=== PATIENT | male | born 1970 | race Two or more races ===

== ENCOUNTER 2022-04-24 18:52 | Emergency (ER) | payer OTHER, SELFPAY ==
[2022-04-24 19:03] VITALS: BP 178/92; PULSE 90; RESP 14; TEMP 37.3; O2SAT 97
--- NOTE | 2022-04-24 20:05 | ED_ITS ---
HPI - Abdominal Pain General: Chief Complaint: Abdominal Pain Stated Complaint: ABD Pain Time Seen by Provider: 04/24/22 20:05 History of Present Illness: 52-year-old male patient comes in today with complaints of mid abdominal pain for about 1 week. Patient reports that the pain seemed to to improve but then started back today. Patient has used some Pepto-Bismol and noted some discoloration of his stool. Patient denies any chronic medical problems but does use tramadol routinely for chronic pain. Patient did recently have his fingernail removed on his left hand due to infec tion. Patient denies use of any other medications. Associated Symptoms: Reports diarrhea and nausea; Denies vomiting Review of Systems General: Reports: 10 or more systems reviewed and unremarkable except in HPI and below Card: Denies: chest pain Resp: Denies: dyspnea GI: Reports: abdominal pain, nausea and diarrhea; Denies: vomiting : Denies: difficulty urinating Skin/Breast: Denies: rash Physical Exam Const: COMMON NORMALS: alert HENMT: COMMON NORMALS: normocephalic HEAD & SCALP: normocephalic Neck/C-Spine: COMMON NORMALS: full ROM Resp: COMMON NORMALS: normal respiratory effort Cardio: COMMON NORMALS: regular rate RATE: regular rate GI: AUSCULTATION: Yes normoactive bowel sounds PALPATION: Yes Firmness to palpation present (GI) and Yes Tenderness to palpation present (GI) (Mild generalized) Extremity: COMMON NORMALS: normal to inspection Neuro: SENSORIUM/ORIENTATION: Yes alert Skin: COMMON NORMALS: no rashes or lesions noted GENERAL SKIN EXAM: no rashes or lesions noted Course Vital Signs: Vital signs: Vital Signs Temperature 98.9 F 04/24/22 20:37 Pulse Rate 86 04/24/22 20:37 Respiratory Rate 16 04/24/22 20:37 Blood Pressure 169/79 04/24/22 20:37 Pulse Oximetry 98 04/24/22 20:37 MDM - Abdominal Pain Medical Decision Making 52-year-old male patient comes in today with complaints of abdominal discomfort and loose stools. Patient reports loose stools for about 1 week now. Patient reports he thought he was getting better but today it started again. Further discussion patient had just come off a round of antibiotics for about 1 month due to an infection to his left middle finger now. On exam abdomen is slightly firm with some generalized tenderness. Bowel sounds are active. Vital signs are normal except for some mild elevation of blood pressure. Patient appears nontoxic. Differential diagnosis includes but not limited to pancreatitis, enterocolitis, dehydration, bowel obstruction. White blood cell count was slightly elevated at 15 5, CMP was unremarkable, urinalysis was unremarkable, CT noted some wall thickening of the colon probable suggested for some colitis. In light of patient's recent antibiotic usage I believe he probably has antibiotic associated enterocolitis. We will treat with Flagyl and some hydrocodone for p ain. Patient was advised that the CT report was not back prior to discharge but we would call him if any significant abnormalities were noted. Patient was agreeable to this and reported understanding. Lab Data : 04/24/22 20:41 04/24/22 20:41 Labs/Radiology: Laboratory Results WBC 15.5 10^3/uL (4.0-10.0) H 04/24/22 20:41 RBC 5.26 10^6/uL (4.1-5.3) 04/24/22 20:41 Hgb 15.7 g/dL (11.7-16.6) 04/24/22 20:41 Hct 47.2 % (42.0-52.0) 04/24/22 20:41 MCV 89.7 fl (80-94) 04/24/22 20:41 MCH 29.8 pg (28.0-34.0) 04/24/22 20:41 MCHC 33.3 g/dL (30.0-36.0) 04/24/22 20:41 RDW 14.6 % (12.1-15.1) 04/24/22 20:41 Plt Count 327 10^3/cmm (130-400) 04/24/22 20:41 MPV 9.6 fL (7.4-10.4) 04/24/22 20:41 Neut % (Auto) 67.4 % 04/24/22 20:41 Lymph % (Auto) 16.7 % 04/24/22 20:41 Fountain % (Auto) 13.8 % 04/24/22 20:41 Eos % (Auto) 1.2 % 04/24/22 20:41 Baso % (Auto) 0.4 % 04/24/22 20:41 Neut # (Auto) 10.42 10^3/uL (1.8-7.7) H 04/24/22 20:41 Lymph # (Auto) 2.6 10^3/uL (0.8-4.8) 04/24/22 20:41 Fountain # (Auto) 2.1 10^3/uL (0.2-0.9) H 04/24/22 20:41 Eos # (Auto) 0.2 10^3/uL (0.0-0.8) 04/24/22 20:41 Baso # (Auto) 0.1 10^3/uL (0.0-0.1) 04/24/22 20:41 Nucleated RBC % (auto) 0 % 04/24/22 20:41 Nucleated RBCs # 0.0 /100WBC 04/24/22 20:41 Sodium 139 mmol/L (136-145) 04/24/22 20:41 Potassium 3.7 mmol/L (3.5-5.1) 04/24/22 20:41 Chloride 102 mmol/L (98-107) 04/24/22 20:41 Carbon Dioxide 27 mmol/L (22-29) 04/24/22 20:41 Anion Gap 13.7 (5-19) 04/24/22 20:41 BUN 6 mg/dL (6-20) 04/24/22 20:41 Creatinine 0.6 mg/dL (0.7-1.2) L 04/24/22 20:41 GFR Calculation 140.9 mL/min (90-130) H 04/24/22 20:41 Glucose 72 mg/dL (65-115) 04/24/22 20:41 Calculated Osmolality 284 mOsm/kg (285-295) L 04/24/22 20:41 Calcium 9.5 mg/dL (8.5-10.5) 04/24/22 20:41 Total Bilirubin 0.3 mg/dL (0.15-1.2) 04/24/22 20:41 AST 17 U/L (0-40) 04/24/22 20:41 ALT 19 U/L (0-41) 04/24/22 20:41 Alkaline Phosphatase 152 IU/L (40-130) H 04/24/22 20:41 Total Protein 7.1 g/dL (6.6-8.7) 04/24/22 20:41 Albumin 4.3 g/dL (3.5-5.2) 04/24/22 20:41 Globulin 2.8 g/dL (1.3-4.6) 04/24/22 20:41 Lipase 27 U/L (13-60) 04/24/22 20:41 Discharge Plan Discharge Patient Disposition: Home Clinical Impression: Antibiotic associated enterocolitis Condition: Stable Prescriptions: New metronidazole 500 mg tablet 500 mg PO TID Qty: 21 0RF hydrocodone-acetaminophen 5-325 mg tablet 1 tab PO Q8H PRN (Reason: pain (scale score 7-10)) Qty: 7 0RF Discharge Orders: Discharge ED (Routine); Ordered 04/24/22 Ordered By: Nikhil Viera Referrals: Sherice Patricia FNP [Primary Care Provider] - Discharge Diet: Usual diet Discharge Activity: Increase activity as tolerated Patient Instructions: Colitis (ED), Opioid Safety Activity Restrictions/Additional Instructions: Drink plenty of water and fluids. Activity as tolerated. Start with a light bland diet with rice, apples, toast, bananas, and boiled chicken. Increase diet back to normal foods as tolerated. Make sure to drink plenty of water and fluids with antibiotics. Follow-up with primary care in 3 days for recheck. Return to emergency department for high fever greater than 100.4, inability to hold fluids down, uncontrolled pain, blood in vomit or stool. 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
--- NOTE | 2022-04-24 20:26 | CTR_ITS ---
PROCEDURE INFORMATION: Exam: CT Abdomen And Pelvis Without Contrast Exam date and time: 04/24/2022 9:39 PM Age: 52 years old Clinical indication: Abdominal pain; Generalized; Patient HX: C/O abd cramping with tarry stools; Additional info: Abd pain, change in stool TECHNIQUE: Imaging protocol: Computed tomography of the abdomen and pelvis without contrast. Sagittal and coronal reformatted images were created and reviewed. Radiation optimization: All CT scans at this facility use at least one of these dose optimization techniques: automated exposure control; mA and/or kV adjustment per patient size (includes targeted exams where dose is matched to clinical indication); or iterative reconstruction. COMPARISON: No relevant prior studies available. RADIATION DOSE METRICS: Total DLP (mGy-cm): 1697.86 FINDINGS: Limitations: Evaluation of solid organs and vasculature is limited without intravenous contrast. Lungs: Visualized lungs are clear. Pleural spaces: No pleural effusion. Heart: Visualized portions of the heart are unremarkable. Liver: Two cysts in the right lobe of the liver, the larger measures 1.4 cm (series 4, image 37). Gallbladder and bile ducts: The gallbladder is unremarkable. No biliary ductal dilatation. Pancreas: The pancreas is unremarkable. No pancreatic ductal dilatation. Spleen: The spleen is unremarkable. Adrenal glands: The right and left adrenal glands are unremarkable. Kidneys and ureters: The right kidney is unremarkable. Nonobstructing stone in the left kidney measuring 3.5 mm (series 4, image 36). Parapelvic cyst in the left kidney measuring 1.8 cm (series 4, image 39). The right and left ureters are unremarkable. Stomach and bowel: Fatty infiltration of the wall of the cecum and ascending colon. Findings suggest sequela of chronic inflammation. Mild wall thickening of the ascending, transverse, and descending colon. There is no significant pericolonic inflammation. These findings may suggest mild colitis however. The stomach is collapsed, which can limit evaluation. No focal abnormality in the stomach otherwise. No acute abnormality in the small bowel. Appendix: The appendix is visualized and is unremarkable. No findings to suggest acute appendicitis. Intraperitoneal space: No free intraperitoneal air. No ascites. No loculated fluid collections to suggest an abscess. Vasculature: Minimal atherosclerotic changes in the visualized arteries. No evidence for aortic aneurysm. Lymph nodes: No lymphadenopathy. Urinary bladder: The bladder is unremarkable. Reproductive: Unremarkable as visualized. Bones/joints: Bone islands in the left acetabulum and left femur. Mild degenerative changes in the visualized spine. Soft tissues: Unremarkable. CT/CT abdomen pelvis wo con [id number] IMPRESSION: 1. Mild wall thickening of the ascending, transverse, and descending colon. There is no significant pericolonic inflammation. These findings may suggest mild colitis however. Recommend clinical correlation. 2. Nonobstructing left renal stone. 3. Incidental/nonacute findings are listed in the report. COMMENTS: Consistent with the [employer]'s Incidental Findings Committee white paper (J Am Kirsty Radiol 2018): Any incidental renal lesion less than 1 cm or classified as too small to characterize, or any incidental cystic renal lesion characterized as simple-appearing, is likely benign. No follow-up imaging is recommended for these lesions per consensus recommendations based on imaging criteria.
[2022-04-24 20:37] VITALS: BP 169/79; PULSE 86; RESP 16; TEMP 37.2; O2SAT 98
[2022-04-24 20:43] LABS: Basophils # 0.1 10^3/uL (0.0-0.1); Basophils % 0.4 %; Eosinophils # 0.2 10^3/uL (0.0-0.8); Eosinophils % 1.2 %; Hematocrit 47.2 % (42.0-52.0); Hemoglobin 15.7 g/dL (11.7-16.6); Lymphocytes # 2.6 10^3/uL (0.8-4.8); Lymphocytes % 16.7 %; Mean Corpuscular HGB Conc 33.3 g/dL (30.0-36.0); Mean Corpuscular Hemoglobin 29.8 pg (28.0-34.0); Mean Corpuscular Volume 89.7 fl (80-94); Mean Platelet Volume 9.6 fL (7.4-10.4); Monocytes # 2.1 10^3/uL (0.2-0.9); Monocytes % 13.8 %; Neutrophils # 10.42 10^3/uL (1.8-7.7); Neutrophils % 67.4 %; Nucleated Red Blood Cells % 0 %; Platelet Count 327 10^3/cmm (130-400); Red Blood Count 5.26 10^6/uL (4.1-5.3); Red Cell Distribution Width 14.6 % (12.1-15.1); White Blood Count 15.5 10^3/uL (4.0-10.0)
[2022-04-24 21:01] LABS: Alanine Aminotransferase 19 U/L (0-41); Albumin Level 4.3 g/dL (3.5-5.2); Alkaline Phosphatase 152 IU/L (40-130); Anion Gap 13.7 (5-19); Aspartate Amino Transferase 17 U/L (0-40); Blood Urea Nitrogen 6 mg/dL (6-20); Calcium 9.5 mg/dL (8.5-10.5); Carbon Dioxide 27 mmol/L (22-29); Chloride 102 mmol/L (98-107); Globulin 2.8 g/dL (1.3-4.6); Glomerular Filtration Rate 140.9 mL/min (90-130); Glucose 72 mg/dL (65-115); Lipase 27 U/L (13-60); Osmolality Calculated 284 mOsm/kg (285-295); Potassium 3.7 mmol/L (3.5-5.1); Sodium 139 mmol/L (136-145); Total Bilirubin 0.3 mg/dL (0.15-1.2); Total Protein 7.1 g/dL (6.6-8.7)
[2022-04-24] MEDS: sodium chloride 0.9% 1,000 ML 999 ML IV (21:02)
[2022-04-24] MEDS: metroNIDAZOLE 500 MG Tablet PO (23:06)
[2022-04-24] MEDS: HYDROcodone-acetaminophen 5-325 mg Tablet 1 TAB PO (23:06)
== END 2022-04-24 23:17 | disposition home or self-care (01) ==
PROVIDERS: Emergency Medicine; Emergency Provider Nurse Practitioner Family; PCP Registered Nurse
DX: K52.89 Other specified noninfective gastroenteritis and colitis (principal)
CPT/HCPCS: 74176; 80053; 83690; 85025; 99284; J7030

== ENCOUNTER 2023-03-11 10:34 | Emergency (ER) | payer OTHER, SELFPAY ==
[2023-03-11 10:38] VITALS: BP 153/89; PULSE 80; RESP 16; TEMP 36.4; O2SAT 95; BMI 21.4
[2023-03-11 10:50] VITALS: BP 153/89; PULSE 80; RESP 16; O2SAT 95
--- NOTE | 2023-03-11 11:05 | W.ED.UPPEXIN ---
HPI - Extremity Injury (Upper) General: Chief Complaint: Extremity Injury, Upper Stated Complaint: Left shoulder pain Time Seen by Provider: 03/11/23 10:55 Source: patient Mode of arrival: ambulatory Limitations: no limitations History of Present Illness: Patient is a nice 52-year-old male presents to ED today for evaluation of a left upper arm injury. He states 2 days ago he was lifting something heavy when he felt and heard a pop to his left bicep. He has noticed deformity. He has no other injuries or complaints at this time. MD complaint: injury to: left and arm Onset (ago): day(s) Other Extremity Injury: Left: arm Other injuries: none Place: home Severity: moderate Relieving factors: immobilization Exacerbating factors: movement of extremity Context: injury Associated symptoms: Reports no associated symptoms; Denies neck pain Review of Systems Musc: Reports: extremity pain (Left upper arm), joint pain (Left shoulder) and other (Deformity to left upper arm); Denies: neck pain, back pain, joint swelling, joint redness or joint warmth Neuro: Denies: numbness in extremities or sensory changes Physical Exam Const: COMMON NORMALS: no acute distress, average body habitus, patient oriented x3, no limitations, healthy appearing, alert and well nourished Extremity: COMMON NORMALS: capillary refill normal, no joint enlargement and no clubbing, cyanosis or edema GENERAL: Yes normal exam except as noted LEFT UPPER EXTREMITY: Yes shoulder joint and Yes upper arm Left upper arm: Yes inspection (Keegan deformity consistent with proximal bicep tendon rupture), Yes palpation (pain with palpation of origin of proximal bicep tendon) and Yes neurovascular exam (normal) Neuro: COMMON NORMALS: patient oriented x3, moves all extremities, no focal motor deficits and no sensory deficits noted SENSORIUM/ORIENTATION: Yes alert Course Vital Signs: Vital signs: Vital Signs Temperature 97.5 F L 03/11/23 10:38 Pulse Rate 78 03/11/23 11:46 Respiratory Rate 18 03/11/23 11:46 Blood Pressure 153/89 03/11/23 10:50 Pulse Oximetry 99 03/11/23 11:46 Oxygen Delivery Me thod Room Air 03/11/23 10:50 MDM - Extremity Injury (Upper) Medical Decision Making Patient has a proximal bicep rupture of his left upper extremity. He will require evaluation by orthopedics to discuss treatment options. Case management referral placed for this. Discharge Plan Discharge Patient Disposition: Home Clinical Impression: Biceps tendon rupture, proximal Qualifiers: Encounter type: initial encounter Laterality: left Qualified Code(s): S46.212A - Strain of muscle, fascia and tendon of other parts of biceps, left arm, initial encounter Condition: Stable Prescriptions: New ibuprofen 400 mg tablet 400 mg PO Q6H PRN (Reason: pain) Qty: 20 0RF No Action tramadol 50 mg tablet 50 mg PO DAILY Discharge Orders: Discharge ED (Routine); Ordered 03/11/23 Ordered By: Miesha Bansal Referrals: Sherice Patricia FNP [Primary Care Provider] - Patient Instructions: Biceps Tendon Rupture, Repairs of the Biceps and Triceps Tendons (DC) Activity Restrictions/Additional Instructions: As we discussed I will have case management set you up with a follow-up appointment with orthopedics to go over treatment and/or surgical options. 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
--- NOTE | 2023-03-11 11:15 | XRR_ITS ---
PROCEDURE INFORMATION: Exam: XR Left Shoulder Exam date and time: 03/11/2023 11:24 AM Age: 52 years old Clinical indication: Injury or trauma; Other: Not specified; Sprain or strain; Shoulder; Left; Additional info: Injury; Bicep tendon rupture TECHNIQUE: Imaging protocol: Radiologic exam of the left shoulder. Views: 2 or more views. COMPARISON: No relevant prior studies available. FINDINGS: Bones/joints: Normal. Soft tissues: Normal. XR/XR shoulder LT min 2V* [id number] IMPRESSION: No acute findings.
--- NOTE | 2023-03-11 11:28 | PC.NURSE ---
Addendum entered by Edith Kerr 03/19/23 12:57: Patient had a follow up appointment scheduled for 03.19.23 at ortho - patient did attend appointment. Addendum entered by Dottie Garcia RN 03/12/23 13:52: attempt made to contact patient - number not accepting msgs - mailed letter to call our clinic to schedule w/ dr robert next week Original Note: Patient seen in the Ed on 03/11/23 and referred to Ortho for proximal bicep tendon rupture. TCM sent message to call pt with an appt.
[2023-03-11 11:46] VITALS: PULSE 78; RESP 18; O2SAT 99
== END 2023-03-11 11:47 | disposition home or self-care (01) ==
PROVIDERS: Emergency Provider Physician Assistant; PCP Registered Nurse
DX: S46.212A Strain of muscle, fascia and tendon of other parts of biceps, left arm, initial encounter (principal); X50.0XXA Overexertion from strenuous movement or load, initial encounter
CPT/HCPCS: 73030; 99283

== ENCOUNTER 2024-08-22 14:43 | Emergency (ER) | payer OTHER, SELFPAY ==
[2024-08-22 14:58] VITALS: BP 152/103; PULSE 106; RESP 22; TEMP 37.5; O2SAT 99; BMI 22.4
[2024-08-22 16:00] LABS: Basophils # 0.1 10^3/uL (0.0-0.1); Basophils % 0.2 %; Hematocrit 48.6 % (37-53); Lymphocytes # 0.8 10^3/uL (0.8-4.8); Lymphocytes % 3.7 %; Mean Corpuscular Hemoglobin 30.6 pg (27-33); Mean Platelet Volume 10.1 fL (7.4-10.4); Monocytes # 1.2 10^3/uL (0.2-0.9); Monocytes % 5.2 %; Neutrophils # 20.63 10^3/uL (1.8-7.7); Neutrophils % 90.3 %; Nucleated Red Blood Cells % 0.1 %; Platelet Count 255 10^3/cmm (157-399); Red Cell Distribution Width 15.7 % (12.1-15.1); White Blood Count 22.86 10^3/uL (3.29-11.43)
[2024-08-22 16:15] LABS: Alanine Aminotransferase 24 U/L (0-41); Albumin Level 4.1 g/dL (3.5-5.2); Alkaline Phosphatase 169 U/L (40-130); Aspartate Amino Transferase 31 U/L (0-40); Blood Urea Nitrogen 10 mg/dL (6-20); Calcium 8.9 mg/dL (8.5-10.5); Carbon Dioxide 22 mmol/L (22-29); Chloride 102 mmol/L (98-107); Creatinine Clr Calc Pharmacy 75.0615; Globulin 3.3 g/dL (1.3-4.6); Glomerular Filtration Rate 100.4 mL/min (90-130); Glucose 115 mg/dL (65-115); Lipase 23 U/L (13-60); Osmolality Calculated 284 mOsm/kg (285-295); Sodium 137 mmol/L (136-145); Total Bilirubin 0.3 mg/dL (0.15-1.2); Total Protein 7.4 g/dL (6.6-8.7)
[2024-08-22 16:17] LABS: Anion Gap 17.1 (5-19); Potassium 4.1 mmol/L (3.5-5.1)
[2024-08-22 16:20] LABS: Lactic Sepsis W/Reflex 1.6 mmol/L (0.5-2.2)
--- NOTE | 2024-08-22 16:28 | CTR_ITS ---
PROCEDURE INFORMATION: Exam: CT Abdomen And Pelvis With Contrast Exam date and time: 08/22/2024 7:44 PM Age: 54 years old Clinical indication: Abdominal pain; Additional info: Abd pain TECHNIQUE: Imaging protocol: Computed tomography of the abdomen and pelvis with contrast. Radiation optimization: All CT scans at this facility use at least one of these dose optimization techniques: automated exposure control; mA and/or kV adjustment per patient size (includes targeted exams where dose is matched to clinical indication); or iterative reconstruction. Contrast material: OMNI 350; Contrast volume: 100 ml; Contrast route: INTRAVENOUS (IV); COMPARISON: CT abdomen pelvis wo con [id number] 04/24/2022 9:39 PM RADIATION DOSE METRICS: Total DLP (mGy-cm): 348.38 FINDINGS: Lungs: Lung bases are clear. No pleural effusion. Liver: Normal. No mass. Gallbladder and biliary ducts: Normal. No calcified stones. No ductal dilation. Pancreas: Normal. No ductal dilation. Spleen: Normal. No splenomegaly. Adrenal glands: Normal. No mass. Kidneys and ureters: Normal. No hydronephrosis. Stomach and bowel: There are multiple loops of minimally distended, fluid-filled small bowel and liquid stool is noted throughout the colon. Appendix: No evidence of appendicitis. Intraperitoneal space: Unremarkable. No free air. No significant fluid collection. Vasculature: Unremarkable. No abdominal aortic aneurysm. Lymph nodes: Unremarkable. No enlarged lymph nodes. Urinary bladder: Unremarkable as visualized. Reproductive: Unremarkable as visualized. Bones/joints: Unremarkable. No acute fracture. Soft tissues: Unremarkable. CT/CT abdomen pelvis w con* [id number] IMPRESSION: Findings consistent with acute enterocolitis
--- NOTE | 2024-08-22 16:28 | ED_ITS ---
HPI - Abdominal Pain 2 General: Chief Complaint: Abdominal Pain Stated Complaint: fever, abd pain, joint pain Time Seen by Provider: 08/22/24 16:21 Source: patient Mode of arrival: ambulatory Limitations: no limitations History of Present Illness: 54-year-old male who states that he has been having some diffuse abdominal pain over the last 2 days he states he has attacks where it is very sharp in nature hurts all over his abdomen has had fevers as well he states had some nausea and diarrhea denies any history of any abdominal issues in the past denies any surgeries on his abdomen in the past. Associated Symptoms: Reports diarrhea, fever(s) and nausea; Denies chills, dysuria and vomiting Related Data Home Medications Medication Instructions Recorded Confirmed tramadol 50 mg tablet 50 mg PO DAILY 12/15/22 04/06/23 Previous Rx's Medication Instructions Recorded ibuprofen 400 mg tablet 400 mg PO Q6H PRN pain #20 tabs 03/11/23 ciprofloxacin HCl 500 mg tablet 500 mg PO BID #14 tabs 08/22/24 (Cipro) hydrocodone 5 mg-acetaminophen 325 1 tab PO Q6H PRN pain #14 tabs 08/22/24 mg tablet metronidazole 500 mg tablet 500 mg PO Q8H 7 days #21 tabs 08/22/24 ondansetron 4 mg disintegrating 4 mg PO Q6H PRN nausea and 08/22/24 tablet vomiting #14 tabs Allergies Allergy/AdvReac Type Severity Reaction Status Date / Time No Known Allergies Allergy Verified 08/22/24 15:05 Review of Systems 2 Const: Reports: fever(s); Denies: chills, body aches or change in appetite ENMT: Denies: throat pain or dental pain Card: Denies: chest pain Resp: Denies: dyspnea GI: Reports: abdominal pain, nausea and diarrhea; Denies: vomiting : Denies: dysuria Musc: Denies: neck pain or back pain Skin/Breast: Denies: rash Neuro: Denies: headache(s) PFSH ED 2 PFSH: Social History Smoking and tobacco/nicotine status: current every day tobacco/nicotine user Second hand smoke exposure: Yes Alcohol intake: never Substance/Drug Use: never Adopted: No Caregiver/support person: Yes Lives independently: No Household members: significant other Housing: House Number of children: 2 Number of grandchildren: 4 Highest education level completed: Associate Degree: Academic Program service: No Current occupational status: employed 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 occupational exposures/hazards: No Pets and animals: Yes Sexually active: Yes Do you think of yourself as: Straight/Heterosexual Current gender identity: Male Special bing needs: No Agree to transfusion: Yes Physical Exam 2 Const: COMMON NORMALS: patient oriented x3 HENMT: COMMON NORMALS: normocephalic and atraumatic HEAD & SCALP: n ormocephalic and atraumatic Eye: COMMON NORMALS: conjunctivae normal CONJUNCTIVA: Yes conjunctivae normal Neck/C-Spine: COMMON NORMALS: full ROM and supple Chest: COMMONS NORMALS: normal inspection of the chest Resp: COMMON NORMALS: normal respiratory effort, No retractions, No use of accessory muscles and clear to auscultation bilaterally AUSCULTATION: clear to auscultation bilaterally Cardio: COMMON NORMALS: regular rate, regular rhythm and No murmurs present (Cardio) RATE: regular rate RHYTHM: regular rhythm GI: COMMON NORMALS: Normal to inspection, nondistended, normoactive bowel sounds present, Soft to palpation and no masses PALPATION: Yes Soft to palpation OTHER: diffuse tenderness Extremity: COMMON NORMALS: normal to inspection and full ROM Neuro: COMMON NORMALS: patient oriented x3, moves all extremities and no focal motor deficits Psych: COMMON NORMALS: mental status grossly normal, Normal thought process present and cooperative THOUGHT PROCESS: Normal thought process present Skin: COMMON NORMALS: no rashes or lesions noted and no wounds GENERAL SKIN EXAM: no rashes or lesions noted Course 2 Vital Signs: Vital signs: Vital Signs Temperature 99.5 F 08/22/24 14:58 Pulse Rate 85 08/22/24 18:35 Respiratory Rate 16 08/22/24 16:38 Blood Pressure 113/60 08/22/24 18:35 Pulse Oximetry 97 08/22/24 18:35 Oxygen Delivery Me thod Room Air 08/22/24 18:35 MDM - Abdominal Pain Medical Decision Making Patient presents with abdominal pain CT shows enteric colitis I strongly recommend admission as he does have a fever elevated white count with a colitis he states he feels improved he does have medical decision-making capacity understands the risks and benefits and did sign out A[facility] did warn him against drinking alcohol will give him follow-up with surgery informed him if his pain worsens or he changes mind he is to return he understands agrees to plan. Medical Records I reviewed the patient's medical records. Lab Data I reviewed the patient's lab results. 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 There is no evidence of thrombosis. Laboratory Results WBC 22.86 10^3/uL (3.29-11.43) H 08/22/24 15:48 RBC 5.40 10^6/uL (3.85-5.65) 08/22/24 15:48 Hgb 16.50 g/dL (11.27-16.99) 08/22/24 15:48 Hct 48.6 % (37-53) 08/22/24 15:48 MCV 90.0 fl (82-101) 08/22/24 15:48 MCH 30.6 pg (27-33) 08/22/24 15:48 MCHC 34.0 g/dL (30-55) 08/22/24 15:48 RDW 15.7 % (12.1-15.1) H 08/22/24 15:48 Plt Count 255 10^3/cmm (157-399) 08/22/24 15:48 MPV 10.1 fL (7.4-10.4) 08/22/24 15:48 Neut % (Auto) 90.3 % 08/22/24 15:48 Lymph % (Auto) 3.7 % 08/22/24 15:48 [place] % (Auto) 5.2 % 08/22/24 15:48 Eos % (Auto) 0.0 % 08/22/24 15:48 Baso % (Auto) 0.2 % 08/22/24 15:48 Neut # (Auto) 20.63 10^3/uL (1.8-7.7) H 08/22/24 15:48 Lymph # (Auto) 0.8 10^3/uL (0.8-4.8) 08/22/24 15:48 [place] # (Auto) 1.2 10^3/uL (0.2-0.9) H 08/22/24 15:48 Eos # (Auto) 0.0 10^3/uL (0.0-0.8) 08/22/24 15:48 Baso # (Auto) 0.1 10^3/uL (0.0-0.1) 08/22/24 15:48 Nucleated RBC % (auto) 0.1 % 08/22/24 15:48 Nucleated RBCs # 0.0 /100WBC 08/22/24 15:48 Sodium 137 mmol/L (136-145) 08/22/24 15:48 Potassium 4.1 mmol/L (3.5-5.1) 08/22/24 15:48 Chloride 102 mmol/L (98-107) 08/22/24 15:48 Carbon Dioxide 22 mmol/L (22-29) 08/22/24 15:48 Anion Gap 17.1 (5-19) 08/22/24 15:48 BUN 10 mg/dL (6-20) 08/22/24 15:48 Creatinine 0.8 mg/dL (0.7-1.2) 08/22/24 15:48 GFR Calculation 100.4 mL/min (90-130) 08/22/24 15:48 Glucose 115 mg/dL (65-115) 08/22/24 15:48 Calculated Osmolality 284 mOsm/kg (285-295) L 08/22/24 15:48 Lactic Acid 1.6 mmol/L (0.5-2.2) 08/22/24 15:48 Calcium 8.9 mg/dL (8.5-10.5) 08/22/24 15:48 Total Bilirubin 0.3 mg/dL (0.15-1.2) 08/22/24 15:48 AST 31 U/L (0-40) 08/22/24 15:48 ALT 24 U/L (0-41) 08/22/24 15:48 Alkaline Phosphatase 169 U/L (40-130) H 08/22/24 15:48 Total Protein 7.4 g/dL (6.6-8.7) 08/22/24 15:48 Albumin 4.1 g/dL (3.5-5.2) 08/22/24 15:48 Globulin 3.3 g/dL (1.3-4.6) 08/22/24 15:48 Lipase 23 U/L (13-60) 08/22/24 15:48 Urine Color Yellow (Yellow) 08/22/24 18:12 Urine Appearance Clear (CLEAR) 08/22/24 18:12 Urine pH 6.5 (5-7) 08/22/24 18:12 Ur Specific [place] 1.014 (1.005-1.030) 08/22/24 18:12 Urine Protein Trace (Negative) A 08/22/24 18:12 Urine Glucose (UA) Negative (Normal) 08/22/24 18:12 Urine Ketones Negative (Negative) 08/22/24 18:12 Urine Blood 2+ (Negative) A 08/22/24 18:12 Urine Nitrate Negative (Negative) 08/22/24 18:12 Urine Bilirubin Negative (Negative) 08/22/24 18:12 Urine Urobilinogen 0.2 mg/dL (Negative) 08/22/24 18:12 Ur Leukocyte Esterase Negative (Negative) 08/22/24 18:12 Urine RBC 21-50 /hpf (0-2) H 08/22/24 18:12 Urine WBC 0-5 /hpf (0-5) 08/22/24 18:12 Ur Squamous Epith Cells 0-5 /hpf (0-5) 08/22/24 18:12 Amorphous Sediment Not Reportable 08/22/24 18:12 Urine Bacteria None seen /hpf (NONE) 08/22/24 18:12 Hyaline Casts 0.81 /lpf 08/22/24 18:12 All radiology interpretation(s) finalized by discharge Discharge Plan Discharge Patient Disposition: Left Against Medical Advice Clinical Impression: Abdominal pain, Colitis Condition: Stable Prescriptions: New hydrocodone-acetaminophen 5-325 mg tablet 1 tab PO Q6H PRN (Reason: pain) Qty: 14 0RF metronidazole 500 mg tablet 500 mg PO Q8H 7 Days Qty: 21 0RF ciprofloxacin HCl [Cipro] 500 mg tablet 500 mg PO BID Qty: 14 0RF ondansetron 4 mg tablet,disintegrating 4 mg PO Q6H PRN (Reason: nausea and vomiting) Qty: 14 0RF No Action tramadol 50 mg tablet 50 mg PO DAILY ibuprofen 400 mg tablet 400 mg PO Q6H PRN (Reason: pain) Qty: 20 0RF Referrals: Nicho Ye MD [Physician] - 4-7 days Sherice Patricia FNP [Primary Care Provider] - Discharge Diet: Advance as tolerated Discharge Activity: Resume usual activity Patient Instructions: Abdominal Pain (ED), Colitis (ED) Coding Level of Care Code ED 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
[2024-08-22] MEDS: acetaminophen 500 mg Tablet 1000 MG PO (16:35)
[2024-08-22] MEDS: ondansetron 2 mg/ML SDV 2 mL 4 MG IVP (16:36)
[2024-08-22 16:38] VITALS: RESP 16; O2SAT 96
[2024-08-22] MEDS: morphine 4 mg/mL SDV 1 mL IVP (16:38)
[2024-08-22] MEDS: sodium chloride 0.9% 1,000 ML 999 ML IV ×2 (16:39→18:50)
[2024-08-22 16:40] VITALS: BP 160/94; PULSE 100; O2SAT 97
[2024-08-22 18:18] LABS: Bilirubin Urine Negative (Negative); Blood Urine 2+ (Negative); Glucose Urine UA Negative (Normal); Ketones Urine Negative (Negative); Leukocyte Esterase Urine Negative (Negative); Nitrate Urine Negative (Negative); Protein Urine Trace (Negative); Specific Gravity, Urine 1.014 (1.005-1.030); Urine Appearance Clear (CLEAR); Urine Color Yellow (Yellow); Urobilinogen Urine 0.2 mg/dL (Negative); pH Urine 6.5 (5-7)
[2024-08-22 18:21] LABS: Add Urine Microscopic? YES; Bacteria Urine None Seen /hpf; Hyaline Casts Urine 0.81 /lpf; RBC Urine 21-50 /hpf (0-2); Squamous Epithelial Cell Urine 0-5 /hpf (0-5); WBC Urine 0-5 /hpf (0-5)
[2024-08-22 18:25] LABS: Add Urine Culture? Yes
[2024-08-22 18:35] VITALS: BP 113/60; PULSE 85; O2SAT 97
[2024-08-22] MEDS: iohexol 350 mg/mL 500 mL Btl (per mL) IV (18:48)
[2024-08-22] MEDS: ciprofloxacin 500 mg Tablet PO (19:27)
[2024-08-22] MEDS: metroNIDAZOLE 500 MG Tablet PO (19:27)
--- NOTE | 2024-08-22 19:32 | PC.NURSE ---
pt requesting to leave AMA. Dr. Helton notified. Pt signed AMA formed, pt educated on risks of leaving AMA, pt voiced understanding. Pt requesting to leave anyway. PT was given po ABTs.
--- NOTE | 2024-08-23 09:00 | DCPLANNER ---
Message sent to General Surgery for follow up.
== END 2024-08-22 19:35 | disposition left against medical advice (07) ==
PROVIDERS: Physician Assistant; Emergency Provider Emergency Medicine; PCP Registered Nurse
DX: K52.9 Noninfective gastroenteritis and colitis, unspecified (principal); R10.9 Unspecified abdominal pain; Z72.0 Tobacco use
CPT/HCPCS: 36415; 74177; 80053; 81001; 83605; 83690; 85025; 87086; 96361; 96374; 96375; 99285; J2270; J2405; J7030

== ENCOUNTER → 2024-08-23 14:00 | Outpatient (BNVA) | payer OTHER, SELFPAY | PROVIDERS: PCP Registered Nurse; Referring Provider Emergency Medicine; Visit Provider Surgery | DX: K52.9 Noninfective gastroenteritis and colitis, unspecified (principal) | CPT/HCPCS: 83630; 83993; 87493 ==

== ENCOUNTER 2024-09-03 10:54 | Emergency (ER) | payer OTHER, SELFPAY ==
[2024-09-03 11:21] VITALS: BP 127/82; PULSE 94; RESP 17; TEMP 36.8; O2SAT 97; BMI 22.4
--- NOTE | 2024-09-03 11:37 | CTR_ITS ---
PROCEDURE INFORMATION: Exam: CT Abdomen And Pelvis With Contrast Exam date and time: 09/03/2024 12:22 PM Age: 54 years old Clinical indication: Abdominal pain; Generalized; Additional info: Abd pain TECHNIQUE: Imaging protocol: Computed tomography of the abdomen and pelvis with contrast. Radiation optimization: All CT scans at this facility use at least one of these dose optimization techniques: automated exposure control; mA and/or kV adjustment per patient size (includes targeted exams where dose is matched to clinical indication); or iterative reconstruction. Contrast material: OMNI 350; Contrast volume: 100 ml; Contrast route: INTRAVENOUS (IV); COMPARISON: CT abdomen pelvis w con* [id number] 08/22/2024 7:44 PM RADIATION DOSE METRICS: Total DLP (mGy-cm): 332.58 FINDINGS: Lungs: The lung bases are clear. Liver: Scattered subcentimeter hypodensities in the liver not significantly changed from prior exam likely representing hepatic cysts and/or hemangiomas. Gallbladder and biliary ducts: Normal. No calcified stones. No ductal dilation. Pancreas: The pancreatic duct is mildly dilated predominantly in the pancreatic head and neck region measuring up to 4 mm. There is additionally a 5 x 12 mm hypodense nodule visualized in the pancreatic head/uncinate process region seen on series 3, image 27 not significantly changed from prior exams. Spleen: Normal. No splenomegaly. Adrenal glands: Normal. No mass. Kidneys and ureters: Punctate nonobstructing nephrolithiasis in the interpolar region of the left kidney. Small parapelvic cyst in the lower pole of the left kidney. The right kidney is unremarkable. Stomach and bowel: Similar to slightly improved fluid distension and wall thickening of small and large bowel loops. No definitive evidence of smaller large bowel obstruction. Appendix: The appendix is not definitively identified however there are no secondary signs to suggest acute appendicitis. Intraperitoneal space: No intraperitoneal free air or fluid. Vasculature: Moderate mixed calcified and noncalcified plaque involving the mid to distal abdominal aorta. 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 Lymph nodes: 13 mm lymph node visualized in the right/mid abdomen seen on series 3, image 36. Urinary bladder: Unremarkable as visualized. Reproductive: Unremarkable as visualized. Bones/joints: Unremarkable. No acute fracture. Soft tissues: Unremarkable. CT/CT abdomen pelvis w con* [id number] IMPRESSION: 1. Stable to slightly improved enterocolitis as described above. 2. The pancreatic duct is borderline enlarged in the region of the pancreatic head and neck with a 5 x 12 mm hypodense nodule visualized in the region of the pancreatic head/uncinate process possibly representing IPMN. Further evaluation with MRI MRCP protocol is recommended as clinically indicated. 3. Stable noncalcified plaque at the origin the superior mesenteric artery resulting in approximately 40% stenosis. No evidence mesenteric occlusion. 4. Other findings as detailed in the body of the report.
[2024-09-03 11:44] LABS: Bilirubin Urine 1+ (Negative); Blood Urine 3+ (Negative); Glucose Urine UA Negative (Normal); Ketones Urine Negative (Negative); Leukocyte Esterase Urine Negative (Negative); Nitrate Urine Negative (Negative); Protein Urine 1+ (Negative); Specific Gravity, Urine 1.025 (1.005-1.030); Urine Appearance Clear (CLEAR); Urine Color Dark Yellow (Yellow)
[2024-09-03 11:49] LABS: Add Urine Microscopic? YES; Hyaline Casts Urine 10.73 /lpf; RBC Urine 21-50 /hpf (0-2); WBC Urine 0-5 /hpf (0-5)
[2024-09-03 11:49] LABS: Basophils % 0.2 %; Eosinophils # 0.1 10^3/uL (0.0-0.8); Eosinophils % 0.5 %; Hematocrit 49.1 % (37-53); Lymphocytes # 1.6 10^3/uL (0.8-4.8); Lymphocytes % 13.6 %; Mean Corpuscular HGB Conc 33.4 g/dL (30-55); Mean Corpuscular Hemoglobin 29.7 pg (27-33); Mean Corpuscular Volume 88.8 fl (82-101); Mean Platelet Volume 9.9 fL (7.4-10.4); Monocytes # 0.8 10^3/uL (0.2-0.9); Monocytes % 6.9 %; Neutrophils # 9.35 10^3/uL (1.8-7.7); Neutrophils % 78.6 %; Nucleated Red Blood Cells % 0 %; Platelet Count 347 10^3/cmm (157-399); Red Blood Count 5.53 10^6/uL (3.85-5.65); Red Cell Distribution Width 15.6 % (12.1-15.1); White Blood Count 11.88 10^3/uL (3.29-11.43)
--- NOTE | 2024-09-03 11:51 | W.ED.ABDPA2 ---
HPI - Abdominal Pain General: Chief Complaint: Abdominal Pain Stated Complaint: Fever / abd pain Time Seen by Provider: 09/03/24 11:07 Source: patient Mode of arrival: ambulatory Limitations: no limitations History of Present Illness: 54-year-old male seen here earlier this month with diagnosed colitis states he finished his course antibiotics did have improvement he states that he started having pain again over the last 2 days he states he did follow-up with surgeon supposed to see them next week again. States pains in his lower abdomen rates it a 7 out of 10 denies any vomiting diarrhea. Associated Symptoms: Denies chills, diarrhea, dysuria, fever(s), nausea and vomiting Related Data Home Medications Medication Instructions Recorded Confirmed tramadol 50 mg tablet 50 mg PO DAILY 12/15/22 09/03/24 meloxicam 15 mg tablet 15 mg PO DAILY 09/03/24 09/03/24 rizatriptan 5 mg tablet 5 mg PO Q2H migraine 09/03/24 09/03/24 sertraline 25 mg tablet 25 mg PO DAILY 09/03/24 09/03/24 Previous Rx's Medication Instructions Recorded hydrocodone 5 mg-acetaminophen 325 1 tab PO Q6H PRN pain #14 tabs 09/03/24 mg tablet ondansetron 4 mg disintegrating 4 mg PO Q6H PRN nausea and 09/03/24 tablet vomiting #14 tabs Allergies Allergy/AdvReac Type Severity Reaction Status Date / Time No Known Allergies Allergy Verified 08/23/24 13:29 Review of Systems Const: Denies: fever(s), chills, body aches or change in appetite ENMT: Denies: throat pain or dental pain Card: Denies: chest pain Resp: Denies: dyspnea GI: Reports: abdominal pain; Denies: nausea, vomiting or diarrhea : Denies: dysuria Musc: Denies: neck pain or back pain Skin/Breast: Denies: rash Neuro: Denies: headache(s) PFSH ED PFSH: Social History Smoking and tobacco/nicotine status: current every day tobacco/nicotine user (smoke) Second hand smoke exposure: Yes Alcohol intake: never Substance/Drug Use: never Adopted: No Caregiver/support person: Yes Lives independently: No Household members: significant other Housing: House Number of children: 2 Number of grandchildren: 4 Highest education level completed: Associate Degree: Academic Program service: No 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 occupational 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: employed 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 occupational 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/hazards: No Pets and animals: Yes Sexually active: Yes Do you think of yourself as: Straight/Heterosexual Current gender identity: Male Special bing needs: No Agree to transfusion: Yes Physical Exam Const: COMMON NORMALS: no acute distress, patient oriented x3 and healthy appearing HENMT: COMMON NORMALS: normocephalic and atraumatic HEAD & SCALP: normocephalic and atraumatic Eye: COMMON NORMALS: conjunctivae normal CONJUNCTIVA: Yes conjunctivae normal Neck/C-Spine: COMMON NORMALS: full ROM and supple Chest: COMMONS NORMALS: normal inspection of the chest Resp: COMMON NORMALS: normal respiratory effort Cardio: COMMON NORMALS: regular rate, regular rhythm and No murmurs present (Cardio) RATE: regular rate RHYTHM: regular rhythm GI: COMMON NORMALS: Normal to inspection, nondistended, normoactive bowel sounds present, Soft to palpation and no masses PALPATION: Yes Soft to palpation OTHER: lower abd tenderness Extremity: COMMON NORMALS: normal to inspection and full ROM Neuro: COMMON NORMALS: patient oriented x3, moves all extremities and no focal motor deficits Psych: COMMON NORMALS: mental status grossly normal, Normal thought process present and cooperative THOUGHT PROCESS: Normal thought process present Skin: COMMON NORMALS: no rashes or lesions noted and no wounds GENERAL SKIN EXAM: no rashes or lesions noted Course Vital Signs: Vital signs: Vital Signs Temperature 98.2 F 09/03/24 11:21 Pulse Rate 84 09/03/24 12:12 Respiratory Rate 16 09/03/24 12:12 Blood Pressure 126/77 09/03/24 12:12 Pulse Oximetry 94 09/03/24 12:12 Oxygen Delivery Me thod Room Air 09/03/24 12:12 MDM - Abdominal Pain Medical Decision Making Patient presents here with abdominal pain discussed the CT findings with him including the pancreatic findings we will prescribe him pain meds he has follow-up with general surgery on the he is to follow-up as scheduled next week discussed his findings with him return to ER if worsening he understands agrees to plan Medical Records I reviewed the patient's medical records. Lab Data I reviewed the patient's lab results. 09/03/24 11:44 09/03/24 11:44 Labs/Radiology: Radiology Impressions Abdomen/Pelvis CT 09/03/24 11:37 IMPRESSION: 1. Stable to slightly improved enterocolitis as described above. 2. The pancreatic duct is borderline enlarged in the region of the pancreatic head and neck with a 5 x 12 mm hypodense nodule visualized in the region of the pancreatic head/uncinate process possibly representing IPMN. Further evaluation with MRI MRCP protocol is recommended as clinically indicated. 3. Stable noncalcified plaque at the origin the superior mesenteric artery resulting in approximately 40% stenosis. No evidence mesenteric occlusion. 4. Other findings as detailed in the body of the report. Laboratory Results WBC 11.88 10^3/uL (3.29-11.43) H 09/03/24 11:44 RBC 5.53 10^6/uL (3.85-5.65) 09/03/24 11:44 Hgb 16.40 g/dL (11.27-16.99) 09/03/24 11:44 Hct 49.1 % (37-53) 09/03/24 11:44 MCV 88.8 fl (82-101) 09/03/24 11:44 MCH 29.7 pg (27-33) 09/03/24 11:44 MCHC 33.4 g/dL (30-55) 09/03/24 11:44 RDW 15.6 % (12.1-15.1) H 09/03/24 11:44 Plt Count 347 10^3/cmm (157-399) 09/03/24 11:44 MPV 9.9 fL (7.4-10.4) 09/03/24 11:44 Neut % (Auto) 78.6 % 09/03/24 11:44 Lymph % (Auto) 13.6 % 09/03/24 11:44 [place] % (Auto) 6.9 % 09/03/24 11:44 Eos % (Auto) 0.5 % 09/03/24 11:44 Baso % (Auto) 0.2 % 09/03/24 11:44 Neut # (Auto) 9.35 10^3/uL (1.8-7.7) H 09/03/24 11:44 Lymph # (Auto) 1.6 10^3/uL (0.8-4.8) 11/16/24 11:44 [place] # (Auto) 0.8 10^3/uL (0.2-0.9) 09/03/24 11:44 Eos # (Auto) 0.1 10^3/uL (0.0-0.8) 09/03/24 11:44 Baso # (Auto) 0.0 10^3/uL (0.0-0.1) 09/03/24 11:44 Nucleated RBC % (auto) 0 % 09/03/24 11:44 Nucleated RBCs # 0.0 /100WBC 09/03/24 11:44 Sodium 134 mmol/L (136-145) L 09/03/24 11:44 Potassium 3.1 mmol/L (3.5-5.1) L 09/03/24 11:44 Chloride 101 mmol/L (98-107) 09/03/24 11:44 Carbon Dioxide 22 mmol/L (22-29) 09/03/24 11:44 Anion Gap 14.1 (5-19) 09/03/24 11:44 BUN 14 mg/dL (6-20) 09/03/24 11:44 Creatinine 0.9 mg/dL (0.7-1.2) 09/03/24 11:44 GFR Calculation 87.6 mL/min (90-130) L 09/03/24 11:44 Glucose 78 mg/dL (65-115) 09/03/24 11:44 Calculated Osmolality 277 mOsm/kg (285-295) L 09/03/24 11:44 Calcium 9.0 mg/dL (8.5-10.5) 09/03/24 11:44 Total Bilirubin 0.2 mg/dL (0.15-1.2) 09/03/24 11:44 AST 29 U/L (0-40) 09/03/24 11:44 ALT 29 U/L (0-41) 09/03/24 11:44 Alkaline Phosphatase 110 U/L (40-130) 09/03/24 11:44 Total Protein 7.1 g/dL (6.6-8.7) 09/03/24 11:44 Albumin 4.0 g/dL (3.5-5.2) 09/03/24 11:44 Globulin 3.1 g/dL (1.3-4.6) 09/03/24 11:44 Lipase 33 U/L (13-60) 09/03/24 11:44 Urine Color Dark yellow (Yellow) A 09/03/24 11:29 Urine Appearance Clear (CLEAR) 09/03/24 11:29 Urine pH 6.0 (5-7) 09/03/24 11:29 Ur Specific [place] 1.025 (1.005-1.030) 09/03/24 11:29 Urine Protein 1+ (Negative) A 09/03/24 11:29 Urine Glucose (UA) Negative (Normal) 09/03/24 11:29 Urine Ketones Negative (Negative) 09/03/24 11: Urine Blood 3+ (Negative) A 09/03/24 11: Urine Nitrate Negative (Negative) 09/03/24 11:29 Urine Bilirubin 1+ (Negative) H 09/03/24 11:29 Urine Urobilinogen 1.0 mg/dL (Negative) 09/03/24 11:29 Ur Leukocyte Esterase Negative (Negative) 09/03/24 11:29 Urine RBC 21-50 /hpf (0-2) H 09/03/24 11:29 Urine WBC 0-5 /hpf (0-5) 09/03/24 11:29 Ur Squamous Epith Cells 6-10 /hpf (0-5) 09/03/24 11:29 Amorphous Sediment Not Reportable 09/03/24 11:29 Urine Bacteria 1+ /hpf (NONE) H 09/03/24 11:29 Hyaline Casts 10.73 /lpf 09/03/24 11:29 Coarse Granular Casts 0-4 /lpf H 09/03/24 11:29 Urine Mucus 2+ /hpf 09/03/24 11:29 All radiology interpretation(s) finalized by discharge Discharge Plan Discharge Patient Disposition: Home Clinical Impression: Abdominal pain Condition: Stable Prescriptions: New hydrocodone-acetaminophen 5-325 mg tablet 1 tab PO Q6H PRN (Reason: pain) Qty: 14 0RF ondansetron 4 mg tablet,disintegrating 4 mg PO Q6H PRN (Reason: nausea and vomiting) Qty: 14 0RF No Action tramadol 50 mg tablet 50 mg PO DAILY meloxicam 15 mg tablet 15 mg PO DAILY sertraline 25 mg tablet 25 mg PO DAILY rizatriptan 5 mg tablet 5 mg PO Q2H Discharge Orders: Discharge ED (Routine); Ordered 09/03/24 Ordered By: Giana Helton Referrals: Nicho Ye MD [Physician] - 4-7 days Lydia Ortega DO [Primary Care Provider] - Discharge Diet: Advance as tolerated Discharge Activity: Resume usual activity Patient Instructions: Abdominal Pain (ED), Opioid Safety Coding Level of Care Code ED [employer]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
[2024-09-03 12:03] LABS: Bacteria Urine 1+ /hpf; Coarse Granular Casts Urine 0-4 /lpf; Mucus Urine 2+ /hpf; UA Slide Review UA Slide Review Perf
[2024-09-03 12:04] LABS: Add Urine Culture? Yes
[2024-09-03 12:05] LABS: Alanine Aminotransferase 29 U/L (0-41); Alkaline Phosphatase 110 U/L (40-130); Anion Gap 14.1 (5-19); Aspartate Amino Transferase 29 U/L (0-40); Blood Urea Nitrogen 14 mg/dL (6-20); Carbon Dioxide 22 mmol/L (22-29); Chloride 101 mmol/L (98-107); Creatinine Clr Calc Pharmacy 66.7213; Globulin 3.1 g/dL (1.3-4.6); Glomerular Filtration Rate 87.6 mL/min (90-130); Glucose 78 mg/dL (65-115); Lipase 33 U/L (13-60); Osmolality Calculated 277 mOsm/kg (285-295); Potassium 3.1 mmol/L (3.5-5.1); Sodium 134 mmol/L (136-145); Total Bilirubin 0.2 mg/dL (0.15-1.2); Total Protein 7.1 g/dL (6.6-8.7)
[2024-09-03 12:11] VITALS: RESP 16; O2SAT 95
[2024-09-03] MEDS: ondansetron 2 mg/ML SDV 2 mL 4 MG IVP (12:11)
[2024-09-03] MEDS: morphine 4 mg/mL SDV 1 mL IVP (12:11)
[2024-09-03 12:12] VITALS: BP 126/77; PULSE 84; RESP 16; O2SAT 94
[2024-09-03] MEDS: iohexol 350 mg/mL 500 mL Btl (per mL) IV (12:25)
[2024-09-03 13:17] VITALS: BP 110/79; PULSE 86; RESP 16; O2SAT 95
== END 2024-09-03 13:17 | disposition home or self-care (01) ==
PROVIDERS: Emergency Provider Emergency Medicine; PCP Family Medicine
DX: R10.9 Unspecified abdominal pain (principal); F17.200 Nicotine dependence, unspecified, uncomplicated
CPT/HCPCS: 36415; 74177; 80053; 81001; 83690; 85025; 87086; 96374; 96375; 99285; J2270; J2405

== ENCOUNTER 2024-11-01 05:37 | Day surgery (SDC) | payer OTHER, SELFPAY ==
[2024-11-01 05:50] VITALS: BP 149/94; PULSE 79; RESP 18; TEMP 36.8; O2SAT 98
[2024-11-01 06:03] VITALS: BMI 21.4
[2024-11-01] MEDS: sodium chloride 0.9% 500 ML 15 ML IV (06:09)
--- NOTE | 2024-11-01 06:23 | ANES.PREANE2 ---
Pre-Anesthetic Assessment Height/Weight: Height 1.52 m Weight 49.895 kg Temp Pulse Resp BP Pulse Ox 98.2 F 79 18 149/94 98 11/01/24 05:50 11/01/24 05:50 11/01/24 05:50 11/01/24 05:50 11/01/24 05:50 Operation Date: 11/01/24 07:00 Proposed Procedures p Colonoscopy- 57449, G0121, Z12.11(Not Applicable) - Nicho Ye MD Familial anesthetic complications: None Was Beta Neredia taken within 24 hours: N/A Was Clonidine taken within 24 hours: N/A Last intake: Intake Last Liquid Date 11/01/24 Last Liquid Time 01:00 Last Solid Date 10/30/24 Last Solid Time 22:00 Social Tobacco and No alcohol 1 pack(s) per day Exam alert, oriented x 3, clear to auscultation bilaterally and regular rate & rhythm Airway Submandibular: within normal limits Cervical ROM: within normal limits Mallampati: Class III Dentition: chipped Comments: Comments: Several chipped teeth History/ROS No significant history except as noted and No significant complaints Pulmonary None reported CV/HEM Hypertension None reported Hepatic None reported GI None reported Metabolic None reported Musc/skel Lower Back Pain Neuropsych Headache (Migraines) Anesthetic Plan ASA status: 1 Anesthesia: Anesthesia Evaluation and MAC Risk of > 500 ml blood loss (7ml/kg in children): No Medications/Allergies Home Medications Medication Instructions Recorded Confirmed Last Taken Type tramadol 50 mg tablet 50 mg PO DAILY PRN Pain 12/15/22 10/27/24 10/31/24 History rizatriptan 5 mg tablet 5 mg PO Q2H PRN migraine 09/03/24 10/27/24 10/31/24 History sertraline 25 mg tablet 25 mg PO DAILY 09/03/24 10/27/24 10/31/24 History Allergies Allergy/AdvReac Type Severity Reaction Status Date / Time No Known Allergies Allergy Verified 11/01/24 05:58 Current Medications Generic Name Dose Route Start Last Admin Trade Name Freq PRN Reason Stop Dose Admin Sodium Chloride 500 mls @ 15 mls/hr 11/01/24 05:50 11/01/24 06:09 Sodium Chloride 0.9% IV 11/02/24 05:49 15 mls/hr .Q24H PRN Administration COLONOSCOPY FLUIDS PFSH Anesthesia Social History Smoking and tobacco/nicotine status: current every day tobacco/nicotine user Second hand smoke exposure: Yes Alcohol intake: never Substance/Drug Use: never Adopted: No Caregiver/support person: Yes Lives independently: No Household members: significant other Housing: House Number of children: 2 Number of grandchildren: 4 Highest education level completed: Associate Degree: Academic Program service: No 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
--- NOTE | 2024-11-01 06:41 | W.PM.OPSFHP ---
Same Day Surgery H&P Indication for Procedure/HPI DATE OF PROCEDURE: November 01, 2024 CHIEF COMPLAINT/INDICATIONFOR SURGICAL PROCEDURE: need for colonoscopy, colitis PREOP DIAGNOSIS: colitis PLANNED PROCEDURE: Operation Date: 11/01/24 07:00 Proposed Procedures p Colonoscopy- 79533, G0121, Z12.11(Not Applicable) - Nicho Ye MD Medications/Allergies* Home Medications Medication Instructions Recorded Confirmed Type tramadol 50 mg tablet 50 mg PO DAILY PRN Pain 12/15/22 10/27/24 History rizatriptan 5 mg tablet 5 mg PO Q2H PRN migraine 09/03/24 10/27/24 History sertraline 25 mg tablet 25 mg PO DAILY 09/03/24 10/27/24 History Allergies/Adverse Reactions Allergy/AdvReac Type Severity Reaction Status Date / Time No Known Allergies Allergy Verified 11/01/24 05:58 Current Medications: Generic Name Dose Route Start Last Admin Trade Name Freq PRN Reason Stop Dose Admin Sodium Chloride 500 mls @ 15 mls/hr 11/01/24 05:50 11/01/24 06:09 Sodium Chloride 0.9% IV 11/02/24 05:49 15 mls/hr .Q24H PRN Administration COLONOSCOPY FLUIDS Pertinent History/Comorbid Conditions* Social History Smoking and tobacco/nicotine status: current every day tobacco/nicotine user Second hand smoke exposure: Yes Alcohol intake: never Substance/Drug Use: never Adopted: No Caregiver/support person: Yes Lives independently: No Household members: significant other Housing: House Number of children: 2 Number of grandchildren: 4 Highest education level completed: Associate Degree: Academic Program service: No Current occupational status: employed 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
[2024-11-01 07:22] VITALS: BP 102/60; PULSE 64; RESP 18; TEMP 36.2; O2SAT 95
[2024-11-01 07:32] VITALS: BP 115/64; PULSE 59; RESP 18; TEMP 36.3; O2SAT 98
--- NOTE | 2024-11-01 07:52 | ANE.PACU2 ---
Inpatient post-anesthesia follow up: Airway intact: Yes Vital signs: Temperature 97.4 F Pulse Rate 59 Respiratory Rate 18 Blood Pressure 115/64 Pulse Oximetry 98 Oxygen Delivery Me thod Room Air Oxygen Flow Rate Fraction of Inspir ed Oxygen Hydration adequate: Yes Nausea and vomiting: No Pain level: 1 Mental status: Baseline
== END 2024-11-01 07:52 | disposition home or self-care (01) ==
PROVIDERS: PCP Family Medicine; Visit Provider Surgery
PROC: 0DJD8ZZ Inspection of Lower Intestinal Tract, Via Natural or Artificial Opening Endoscopic (ICD-10-PCS; CPT 45378; principal; 2024-11-01 07:00)
DX: Z12.11 Encounter for screening for malignant neoplasm of colon (principal); K62.89 Other specified diseases of anus and rectum; K64.8 Other hemorrhoids; I10 Essential (primary) hypertension; F17.200 Nicotine dependence, unspecified, uncomplicated
CPT/HCPCS: 45380; 88305; J2704; J7040